=== PATIENT | female | born 1950 ===

== ENCOUNTER → 2016-12-25 | Outpatient (CLI) | payer MEDICARE, OTHER ==
[~2016-12-25] MED LIST: ANUSOL-HC CREAM30 GM TOP; BETAPACE (GENER80 MG PO; CITRACAL + D E1 EACH PO; CITRACAL950 MG PO; COMBIVENT RESPIM4 GM INH; COZAAR50 MG PO; CRANBERRY500 M1 PO; CYMBALTA60 MG PO; GLUCOPHAGE1000 MG PO; HUMALOG MI100 UNIT/1 SUB-Q; HUMIBID LA (MU600 MG PO; HYDRODIURIL25 MG PO; K-TAB ER20 MEQ PO; LANTUS (IN100 UNIT/M SUB-Q; LOPRESSOR25 MG PO; LYRICA 75MG CAP75 MG PO; ONGLYZA5 MG PO; PRADAXA150 MG PO; PROTONIX40 MG PO; PROVENTIL OR V6.7 GM INH; SYMBICORT 16010.2 GM INH; TOUJEO SOL300 UNIT/1 SUB-Q; TRILIPIX135 MG PO; VITAMIN A8000 UNIT PO; VITAMIN C1000 MG PO; VITAMIN D1000 UNIT PO; ZANAFLEX4 MG PO; ZYRTEC10 MG PO
[2016-12-25 15:43] LABS: ALBUMIN 3.4 gm/dL (3.5-5.0); ANION GAP 15.9 (10.0-19.0); BLOOD UREA NITROGEN 13 mg/dL (6-24); CALCIUM 9.2 mg/dL (8.5-10.5); CHLORIDE 98 mMol/L (96-110); CO2 27 mMol/L (22-32); CREATININE 0.7 mg/dL (0.5-1.1); ESTIMATED GFR (MDRD EQUATION) > 60; MAGNESIUM 1.5 mg/dL (1.3-2.6); PHOSPHORUS 3.2 mg/dL (2.5-4.9); POTASSIUM 3.9 mMol/L (3.7-5.1); SODIUM 137 mMol/L (135-145)
== END | disposition disaster alternative care site (69) ==
LOC: LCNC 15:20
PROVIDERS: Internal Medicine Interventional Cardiology
DX: E83.42 Hypomagnesemia (principal); I10 Essential (primary) hypertension